=== PATIENT | female | born 1965 | race Caucasian/White ===

== ENCOUNTER 2016-09-04 07:44 | Day surgery (SDC) | payer OTHER ==
[~2016-09-04 07:44] MED LIST: RINGERS SOLUTION,LACTATED 1,000 ML IV PRN
--- OUTSIDE RECORDS SUMMARY | 2016-09-04 07:48 | XMS REPORT | Continuity of Care Document ---
:1965 Author Organization [facility] ([facility]) Address [address] [place] [address] Phone [phone] Care Team Providers Name Role Phone Cosmo Brantley Primary Care Provider [phone] Source Comments This disclosure is being made pursuant to the Care Everywhere program, applicable federal and state laws, and may not contain all informaitonavailable regarding this patient.[facility] ([facility]) Active Allergies and Adverse Reactions Allergen Noted Date Severity Reactions Comments Penicillins 01/04/2012 Urticaria (Hives) Current Medications Prescription Sig. Disp. Refills Start Date End Date Status gabapentin 300 mg capsule Take 300 mg by Active mouth 3 times daily. CYANOCOBALAMIN, VITAMIN inject by Active B-12, (VITAMIN B-12 IJ) injection. Active Problems Problem Noted Date Fibromyalgia 01/04/2012 Overview: Diagnosed 14 years ago Obesity 01/04/2012 Insomnia 01/04/2012 S/P bilateral breast reduction 01/04/2012 Stomach ulcer 01/04/2012 Social History Tobacco Use Types Packs/Day Years Used Date Never Smoker Alcohol Use Drinks/Week oz/Week Comments Yes very occasional Last Filed Vital Signs Vital Sign Reading Time Taken Blood Pressure 133/86 01/04/2012 9:16 AM CDT Pulse 61 01/04/2012 9:16 AM CDT Temperature 36.3 C (97.3 F) 01/04/2012 9:16 AM CDT Respiratory Rate - - Height 1.66 m (5' 5.35") 01/04/2012 9:16 AM CDT Weight 102.967 kg (227 lb) 01/04/2012 9:16 AM CDT Body Mass Index 37.37 01/04/2012 9:16 AM CDT Oxygen Saturation - - Plan of Care Health Maintenance Due Date Last Done Comments Hepatitis B Vaccine (1 of 3 - Primary Series) 1965 Tdap Vaccine 09/26/1978 Lipid Disorder Screening 09/26/1985 MMR Vaccine 09/26/1985 Td Vaccine 09/26/1985 Cervical Cancer Screening 09/26/1997 Mammogram 2007 Influenza Vaccine: Seasonal (#1) 01/16/2016 Results from Last 3 Months Not on file
[2016-09-04 08:12] LABS: Hematocrit 40.1 % (37.0-47.0); Hemoglobin 13.3 gm/dL (12.5-16.0); Mean Cell Volume 83.7 fl (78-100); Mean Corpuscular Hemoglobin 27.8 pg (27-31); Mean Corpuscular Hgb Conc 33.2 g/dl (32-36); Mean Platelet Volume 10.9 fl (6.0-9.5); Neutrophil % 70.4 % (42-75.0); Platelet Count 226 K/mm3 (150-450); Red Blood Count 4.79 M/mm3 (4.2-5.4); White Blood Count 5.7 K/mm3 (4.0-10.5)
--- NOTE | 2016-09-04 09:53 | OR ---
Operative Report - Dictated Report Narrative: Operative Report 09/04/16 Hysteroscopy Dilatation and Curettage Preoperative Diagnosis: Menorrhagia Postoperative Diagnosis: Menorrhagia Procedure: Hysteroscopy Dilatation and Curettage Surgeon: Francoise Tompkins M.D. Anesthesia: Cosmo Donahue CRNA, IV sedation Findings: Uterine sound 10 cm. Polypoid appearing tissue. No submucosal fibroid. Fluids: 400 ml EBL: Minimal Drains: None Complications: None Condition: Stable Pathology: Endometrial curettings Procedure: The patient was taken to the operating room with IV fluids running. She was placed in the dorsal lithotomy position after anesthesia was induced. A bivalve speculum was placed in the vagina. The anterior lip of the cervix was grasped with a single-tooth tenaculum. Uterine sound was passed into the endometrial cavity with ease. Uterine sound was 10 cm. The cervix was dilated with [place] dilators. The hysteroscope was introduced into the endometrial cavity. The cavity was distended with normal saline. [place] were visualized bilaterally. There was polypoid appearing tissue but no evidence of submucosal fibroid. The hysteroscope was removed. The cavity was sharply curetted without difficulty. The hysteroscope was once again introduced into the cavity. The cavity was completely curetted. The hysteroscope was removed. The single- tooth tenaculum was removed. Sites were hemostatic. The speculum was removed from the vagina. Sponge counts were correct 2. The patient tolerated the procedure well.
[2016-09-04] MEDS ORDERED: oxyCODONE HCL/ACETAMINOPHEN 1 TAB TABLET PO PRN (09:56)
[2016-09-04] MEDS ORDERED: IBUPROFEN 600 MG TABLET PO PRN (09:57)
[2016-09-04 11:54] VITALS: BP 154/76
== END 2016-09-04 07:45 | disposition home or self-care (01) ==
LOC: AMB 07:44
PROVIDERS: ATTEND Obstetrics & Gynecology
PROC: 0UDB8ZX Extraction of Endometrium, Via Natural or Artificial Opening Endoscopic, Diagnostic (ICD-10-PCS; principal; 2016-09-04 09:00)
DX: N92.0 Excessive and frequent menstruation with regular cycle (principal); J45.909 Unspecified asthma, uncomplicated; E53.8 Deficiency of other specified B group vitamins; E78.00 Pure hypercholesterolemia, unspecified; E66.9 Obesity, unspecified; Z68.31 Body mass index [BMI] 31.0-31.9, adult; Z87.891 Personal history of nicotine dependence